=== PATIENT | male | born 1995 | race Caucasian/White ===

== ENCOUNTER 2016-05-25 21:26 | Emergency (ER) | payer SELFPAY ==
[~2016-05-25] VITALS: Ht 177.8 cm; Wt 119.0 kg
[2016-05-25 21:29] VITALS: Ht 177.8 cm; Wt 119.0 kg
--- NOTE | 2016-05-25 21:54 | ERD ---
ER Documentation Chief Complaint Date/Time DATE: 05/25/16 TIME: 21:44 Chief Complaint sp head injury metal rail fell to head, no loc, c/o headache HPI 20-year-old male presents to emergency department for complaints of right frontal scalp pain and swelling after a metal rail fell on the head this afternoon. Patient did not use consciousness after the injury. Patient denies any vomiting. Patient's family member states the patient seems to be not his usable soft, acting differently and is talking gibberish. Patient did not take any medications for pain. Patient described the pain as throbbing pain, 4/10 scale, is worse upon touching the area. Patient denies any open wounds. ROS All systems reviewed and are negative except as per history of present illness. Medications Home Meds Reported Medications [none] Unknown Strength No Conflict Check 05/25/16 Allergies Allergies: Coded Allergies: No Known Allergy (Unverified , 05/25/16) PMhx/Soc Medical and Surgical Hx: pt denies Medical Hx, pt denies Surgical Hx Hx Alcohol Use: No Hx Substance Use: No Hx Tobacco Use: No Smoking Status: Never smoker FmHx Family History: No coronary disease, No diabetes, No other Physical Exam Vitals Vital Signs Date Time Temp Pulse Resp B/P Pulse Ox O2 Delivery O2 Flow Rate FiO2 05/25/16 21:29 97.8 86 20 166/74 99 Physical Exam GENERAL: The patient is well developed and appropriate for usual state of health, in no apparent distress. CHEST: Clear to auscultation bilaterally. There are no rales, wheezes or rhonchi. HEART: Regular rate and rhythm. No murmurs, clicks, rubs or gallops. No S3 or S4. ABDOMEN: Soft, nontender and nondistended. Good bowel sounds. No rebound or guarding. No gross peritonitis. No gross organomegaly or masses. No Alcocer sign or McBurney point tenderness. BACK: No midline or flank tenderness. EXTREMITIES: Equal pulses bilaterally. There is no peripheral clubbing, cyanosis or edema. No focal swelling or erythema. Full range of motion. Grossly neurovascularly intact. NEURO: Alert and oriented. Cranial nerves 2-12 intact. Motor strength in all 4 extremities with 5/5 strength. Sensation grossly intact. Normal speech and gait. Negative Romberg sign. Negative pronator drift. SKIN: No open wounds noted, mild tenderness on palpation on the right frontal scalp area. There is no apparent rash or petechia. The skin is warm and dry. HEMATOLOGIC AND LYMPHATIC: There is no evidence of excessive bruising or lymphedema. No gross cervical, axillary, or inguinal lymphadenopathy. Results 24 hrs PROCEDURE: CT Head without. CLINICAL INDICATION: Head injury. TECHNIQUE: The study was performed utilizing a multi-slice, multidetector CT scanner. Direct spiral 1 mm axial sections were obtained through the head without the use of intravenous contrast material. 1 or more of the following dose reduction techniques were utilized: Automated exposure control, adjustment of the mA and/or kV according to patient's size, iterative reconstruction technique. Coronal and sagittal reformations were obtained. The images were reviewed on a PACS workstation. RADIATION DOSE: CTDIvol: 44.5 mGy DLP: 720.2 mGy-cm COMPARISON: No prior studies are available for comparison. FINDINGS: There is no intracranial hemorrhage, extra-axial fluid collection, mass lesion, midline shift or hydrocephalus. The ventricles, sulci and cisterns are within normal limits. The white matter is unremarkable. The figueroa-white matter differentiation is preserved. The basal cisterns are patent. The midline structures are intact. The orbits, calvarium and extracranial soft tissues are normal in appearance. There are mild inflammatory changes of the bilateral ethmoid air cells. The remaining visualized paranasal sinuses, mastoid air cells and middle ear cavities are normally aerated. There is pneumatization bilateral petrous apices without evidence inflammatory changes, normal variant IMPRESSION: 1. No acute intracranial abnormality. No intracranial hemorrhage, extra-axial fluid collection, mass lesion or hydrocephalous. RPTAT: HGAS .Esvin Ruiz MD, MD Date Time Electronically viewed and signed by .Esvin Ruiz MD, on 05/25/2016 22: 22 .S/ CC: TERE [facility]AD[facility] [employer] SPECIALIST Procedures/MDM Medical Decision Making: Patient symptoms is likely consistent with a head contusion. There is low suspicion for neurological emergencies at this time since patients neurologic exam is normal. Patient did not have any altered level consciousness, vomiting, changes in balance or memory after incident. Patients CT scan of the head does not show any neurological emergencies at this time. Patient is advised to apply ice on affected area, was given prescription for Tylenol for pain, patient is advised to return to emergency department for worsening symptoms. Departure Diagnosis: Primary Impression: Head contusion Encounter type: initial encounter Contusion of head detail: scalp Qualified Code: S00.03XA - Contusion of scalp, initial encounter Condition: Stable Patient Instructions: Scalp Contusion, No Wake Up CLAUDIOISTERE KENNY NP May 25, 2016 21:54
--- NOTE | 2016-05-25 22:22 | RADRPT ---
PROCEDURE: CT Head without. CLINICAL INDICATION: Head injury. TECHNIQUE: The study was performed utilizing a multi-slice, multidetector CT scanner. Direct spira l 1 mm axial sections were obtained through the head without the use of intravenous contrast materia l. 1 or more of the following dose reduction techniques were utilized: Automated exposure control, adjustment of the mA and/or kV according to patient's size, iterative reconstruction technique. Co syeda and sagittal reformations were obtained. The images were reviewed on a PACS workstation. RADIATION DOSE: CTDIvol: 44.5 mGyDLP: 720.2 mGy-cm COMPARISON: No prior studies are available for comparison. FINDINGS: There is no intracranial hemorrhage, extra-axial fluid collection, mass lesion, midline shift or hyd rocephalus. The ventricles, sulci and cisterns are within normal limits. The white matter is unrem arkable. The figueroa-white matter differentiation is preserved. The basal cisterns are patent. The m idline structures are intact. The orbits, calvarium and extracranial soft tissues are normal in sj earance. There are mild inflammatory changes of the bilateral ethmoid air cells. The remaining visu alized paranasal sinuses, mastoid air cells and middle ear cavities are normally aerated. There is p neumatization bilateral petrous apices without evidence inflammatory changes, normal variant IMPRESSION: 1. No acute intracranial abnormality. No intracranial hemorrhage, extra-axial fluid collection, ma ss lesion or hydrocephalous. RPTAT: HGAS .Esvin Ruiz MD, Date Time Electronically viewed and signed by .Esvin Ruiz MD, on 05/25/2016 22:22 .S/
[2016-05-25] MEDS ORDERED: ACET500C5 PO (22:26)
[2016-05-25 22:42] VITALS: BP 146/77; PULSE 79
== END 2016-05-25 22:44 | disposition home or self-care (01) ==
LOC: FTE 21:26
DX: S00.03XA Contusion of scalp, initial encounter (principal); W20.8XXA Other cause of strike by thrown, projected or falling object, initial encounter; Y92.9 Unspecified place or not applicable
CPT/HCPCS: 70450